=== PATIENT | male | born 1995 | race Caucasian/White ===

== ENCOUNTER 2023-08-28 19:44 | Emergency (ER) | payer MEDICAID ==
[~2023-08-28] VITALS: Ht 172.7 cm; Wt 75.0 kg
[2023-08-28 19:54] VITALS: O2SAT 99
[2023-08-28] MEDS ORDERED: L25 MT (23:20)
[2023-08-28] MEDS ORDERED: GABA-532 MT (23:28)
[2023-08-28 23:52] VITALS: BP 153/100; PULSE 100; RESP 18; TEMP 98.4
[2023-08-28] MEDS: LORAZEPAM 0.5MG TABLET PO ONE (23:53)
== END 2023-08-28 23:55 | disposition home or self-care (01) ==
LOC: ER 19:44
DX: F10.10 Alcohol abuse, uncomplicated (principal); R11.0 Nausea; F41.9 Anxiety disorder, unspecified; Z79.899 Other long term (current) drug therapy
CPT/HCPCS: 99283